=== PATIENT | female | born 1965 | race Caucasian/White ===

== ENCOUNTER 2018-12-20 15:16 | Emergency (ER) | payer OTHER, SELFPAY ==
[2018-12-20 15:17] VITALS: BP 132/78; PULSE 118; RESP 18; TEMP 36.9; O2SAT 97; BMI 35.3
[2018-12-20 15:20] VITALS: PULSE 115; RESP 19; O2SAT 98
--- NOTE | 2018-12-20 15:45 | RAD_ITS ---
STUDY: X-RAY CHEST REASON FOR EXAM: Female, 53 years old. Allergy TECHNIQUE: Frontal view of the chest was performed COMPARISON: None. FINDINGS: Lungs are clear. There is no pneumothorax, pulmonary edema, pleural effusions or cardiomegaly. Osseous structures are intact. There is no gas under the diaphragms. [ ] RAD/Chest 1 View (Portable) IMPRESSION: 1. No acute cardiorespiratory disease. [ ] Electronically Signed: Yaakov Jaimes, at 16:25 EDT Tel , Service support ,
[2018-12-20] MEDS: MethylPREDNISolone 125 MG/2 ML Vial IV (15:55)
[2018-12-20] MEDS: Famotidine 20 MG Tablet PO (15:55)
[2018-12-20] MEDS: DiphenhydrAMINE 50 MG/ML Syringe 25 MG IV (15:55)
--- NOTE | 2018-12-20 16:12 | ED.VISSUMM ---
- ER Visit Summary Date of Service: 12/20/18 Chief Complaint: Allergic reaction History of Present Illness: The patient is a 53 F presenting with allergic reaction. Patient complains of itching all over. She feels that her tongue is swollen. Denies difficulty breathing or swallowing. She took a new medication Adderall this morning. This was her first dose. She also took Augmentin this afternoon. She has taken Augmentin in the past. She had leftover Augmentin and was taking this due to a cough. She denies fever. Denies shortness of breath. Denies other complaints. Physical Examination: Vitals are stable. Heart rate 118. Patient is afebrile. Alert no acute distress. HEENT exam is unremarkable. No tongue swelling. Posterior pharynx normal. Neck is supple. Lungs are clear and equal bilaterally. Heart is regular and tachycardic Abdomen is soft nontender nondistended. Extremities are unremarkable. Skin is warm and dry. No rash No focal neurologic deficit. Remainder of exam is unremarkable. Emergency Department Course and Treatment: Patient was advised to discontinue Adderall and Augmentin. Patient was given Solu-Medrol, Benadryl, Pepcid. Chest x-ray shows no acute process. Patient was observed in the ED. On reevaluation, she is feeling improved. She continues to have no tongue swelling or pharyngeal edema. Repeat heart rate is 90. She will be further observed in the ED and will be checked out to the oncoming physician. Disposition: pending Impression: Allergic reaction This note was generated with [employer] dictation software. It may contain incorrect words, spelling, and punctuation that were not noted in review of the chart prior to signing ED Disposition - Plan for ED Patient: Instructions: ALLERGIC REACTION, Drug Referrals: Marin Castillo DO [Primary Care Provider] -
[2018-12-20 16:20] VITALS: BP 136/90; PULSE 91; RESP 19; O2SAT 97
[2018-12-20 17:00] VITALS: BP 126/82; PULSE 96; RESP 20; O2SAT 97
--- NOTE | 2018-12-20 17:20 | ED.DEP ---
ED Disposition - Plan for ED Patient: Instructions: ALLERGIC REACTION, Drug Referrals: Marin Castillo DO [Primary Care Provider] -
== END 2018-12-20 18:35 | disposition home or self-care (01) ==
LOC: ED 16:08
PROVIDERS: Emergency Provider Emergency Medicine; Family Provider Student in an Organized Health Care Education/Training Program; PCP Student in an Organized Health Care Education/Training Program
DX: T78.40XA Allergy, unspecified, initial encounter (principal); R05 Cough; Z72.0 Tobacco use; F90.9 Attention-deficit hyperactivity disorder, unspecified type
CPT/HCPCS: 71045; 96374; 96375; 99284; A4216

== ENCOUNTER 2020-10-06 21:28 | Emergency (ER) | payer OTHER, SELFPAY ==
[2020-10-06 21:29] VITALS: BP 116/83; PULSE 80; RESP 16; TEMP 36.3; O2SAT 97; BMI 35.4
[2020-10-06 21:50] LABS: Bacteria 0 SEEN /hpf (None Seen); Red Blood Cells-Urine 0 SEEN /hpf (0-5); White Blood Cells 0 SEEN /hpf (0-5)
[2020-10-06 21:58] LABS: Color, Urine Yellow (Yellow); Glucose, Dipstick Normal (Normal); Ketone-Dipstick Negative (Negative); Leukocyte Esterase-Dipstick Negative /ul (Negative); Nitrite-Dipstick Negative (Negative); Occult Blood-Urine 25 /ul (Negative); Protein-Dipstick 30 mg/dl (Negative); Urine Bilirubin Dipstick Negative (Negative); Urine Clarity Clear (Clear); Urine Urobilinogen Normal (Normal)
[2020-10-06 22:07] LABS: Mucous, Urine RARE /hpf (<or=2+); Squamous Epithelial Cells - UA 0-5 SEEN /hpf (5-10)
[2020-10-06 22:08] LABS: Absolute Lymphocyte Count 2.66 X10^3/uL (0.83-4.51); Absolute Neutrophil Count 4.5 X10^3/uL (2.0-7.7); Basophil# 0.04 X10^3/uL; Basophil% 0.5 % (0-1); Eosinophil# 0.02 X10^3/uL; Eosinophils% 0.3 % (0-5); Hematocrit 42.8 % (37-47); Hemoglobin 13.8 g/dL (12.0-15.0); Lymphocyte # 2.66 X10^3/ul (0.83-4.51); Lymphocyte % 33.5 % (19-41); Mean Corp Hgb Conc 32.2 g/dL (32-36); Mean Corpuscular Volume 99.3 fL (81-99); Mean Platelet Vol. 10.7 fl (6.2-12.0); Monocyte# 0.67 X10^3/uL; Monocyte% 8.4 % (0-10); NRBC Flagged by Analyzer 0 % (0-5); Neutrophil # 4.51 X10^3/uL (2.7-7.7); Neutrophil % 56.9 % (47-70); Platelet Count 315 K/mm3 (150-450); RBC Distribution Width CV 12.4 % (11.6-14.6); RBC Distribution Width SD 45.9 fl (35.1-43.9); Red Blood Count 4.31 M/mm3 (4.2-5.4); White Blood Count 7.9 K/mm3 (4.4-11.0)
--- NOTE | 2020-10-06 22:16 | CT_ITS ---
STUDY: CT ABDOMEN AND PELVIS WITHOUT CONTRAST REASON FOR EXAM: Female, 54 years old. Right lower quadrant pain tonight. Nausea. History of prior tubal ligation. RADIATION DOSAGE (If Supplied By Facility): CTDIvol = ( 16.08 ) mGy, DLP = ( 925.57 ) mGycm TECHNIQUE: Transaxial images were obtained from the dome of the diaphragm to the symphysis pubis without oral contrast, and without intravenous contrast. Sagittal and coronal images were reconstructed. Individualized dose optimization techniques were used for this CT. COMPARISON: None. FINDINGS: The visualized lung bases are unremarkable. The visualized portions of the heart are within normal limits. Normal liver. Normal gallbladder and extrahepatic biliary system. Normal spleen. Normal pancreas. There is a small, circumscribed, smooth, low attenuation left adrenal mass, consistent with an adrenal adenoma. Normal right adrenal gland. Normal right kidney. Normal left kidney. Normal visualized ureters. Normal visualized stomach. Normal small intestine. Colonic diverticuli without acute inflammatory change. The appendix is visualized and appears normal. Minimal atherosclerotic changes of the abdominal aorta without aneurysm. Normal inferior vena cava. Normal retroperitoneum. Normal urinary bladder. Normal uterus. No adnexal mass or pelvic lymphadenopathy. No free air or free fluid is seen within the peritoneal cavity. Normal abdominal wall. Minimal degenerative appearing lumbar spine. CT/Abdomen/Pelvis without Cont IMPRESSION: 1. No evidence of renal, ureteral or urinary bladder abnormality. 2. Normal appendix. 3. No acute intra-abdominal or pelvic process. 4. Scattered colonic diverticuli without acute inflammatory change. Electronically Signed: Franklyn Ornelas DO at 22:51 EDT Tel [phone], Service support ,
--- NOTE | 2020-10-06 22:17 | ED.VIS.FEGU ---
HPI HPI - Female History of Present Illness Chief Complaint: Abd Pain Narrative Narrative: 54-year-old female presenting with right flank and right lower abdominal pain which radiates into the inguinal area and she states to her rectum. She has had this for about 3 hours now. She states it was acute in onset. She has nausea without vomiting. She denies constipation or diarrhea. She denies vaginal complaints. She denies hematuria or dysuria. Patient has no history of kidney stones. Patient denies any history of abdominal surgeries except for tubal ligation. PFSH PFSH Home Medications conjugated estrogens 1.25 mg DAILY 12/20/18 [History Last Taken Unknown] dextroamphetamine-amphetamine 10 mg DAILY 12/20/18 [History Last Taken Unknown] loratadine 10 mg PO DAILY 12/20/18 [History Last Taken Unknown] medroxyprogesterone 5 mg DAILY 12/20/18 [History Last Taken Unknown] omeprazole 20 mg DAILY 12/20/18 [History Last Taken Unknown] acyclovir 800 mg PO BID 10/06/20 [History Last Taken Unknown] Allergy/AdvReac Type Severity Reaction Status Date / Time povidone-iodine Allergy Rash Verified 10/06/20 21:31 [From Betadine] soap [From Betadine] Allergy Rash Verified 10/06/20 21:31 Social History Smoking Status: Current every day smoker tobacco type: cigarettes ROS ROS ED Constitutional Constitutional ED: Denies chills or fever(s) Eyes Eyes: Denies blurry vision or diplopia ENT ENT ED: Denies rhinorrhea or sore throat Cardiovascular Cardiovascular: Denies chest pain, palpitations or racing heartbeat Respiratory/Chest Respiratory/Chest: Denies cough or dyspnea Gastrointestinal Gastrointestinal: Reports abdominal pain and nausea; Denies constipation, diarrhea or melena Genitourinary Genitourinary ED: Reports dysuria and hematuria Musculoskeletal Musculoskeletal: Denies arthralgias or myalgias Integumentary Denies abscess or rash Neurologic Neurologic: Denies headache(s) or paresthesias Psychiatric Psychiatric: Denies anxiety or depression EXAM Physical Exam Const Vital Signs: 10/06/20 21:29 Temperature 97.4 F L Temperature Source Temporal Pulse Rate 80 Respiratory Rate 16 Blood Pressure 116/83 H Blood Pressure Mean 94 Pulse Ox 97 Oxygen Delivery Method Room Air Positive well nourished General Appearance ED: NAD HEENT Reports moist mucous membranes Negative for trauma Eyes PERRL and EOMs intact bilaterally General Eye ED: Negative for pale conjunctiva or scleral icterus Resp normal respiratory effort and clear to auscultation bilaterally Cardio regular rate and regular rhythm GI normal to inspection, nondistended, normoactive bowel sounds Bladder / Kidney Exam: CVA tenderness left Back/Spine Lumbar Spine / Lower Back: Negative for lumbar spinal tenderness Extremity normal to inspection Neuro oriented x3 Sensorium / Orientation: alert Psych mental status grossly normal Skin no rashes or lesions noted and no wounds MDM MDM MDM Narrative Medical decision making narrative: Patient's lab work is normal. Renal function electrolytes are normal. No leukocytosis. Urinalysis positive for occult blood. CT abdomen pelvis without contrast does not identify any kidney stones or hydronephrosis. Appendix is visualized and is normal. Patient counseled on all findings. I feel she probably should follow-up with urology given her history of hematuria and hematuria today without kidney stone. Patient also counseled she is to follow-up with her PCP on an outpatient basis. I feel she is stable to be discharged home at this time. Impression: 1. Abdominal pain 2. Hematuria Lab Data Labs: Laboratory Results - last 24 hr 10/06/20 10/06/20 10/06/20 21:45 21:58 21:58 WBC 7.9 RBC 4.31 Hgb 13.8 Hct 42.8 MCV 99.3 H MCH 32.0 MCHC 32.2 RDW Std Deviation 45.9 H RDW Coeff of [place] 12.4 Plt Count 315 MPV 10.7 Immature Gran % (Auto) 0.400 Neut % (Auto) 56.9 Lymph % (Auto) 33.5 [place] % (Auto) 8.4 Eos % (Auto) 0.3 Baso % (Auto) 0.5 Absolute Neuts (auto) 4.5 Absolute Lymphs (auto) 2.66 Nucleated RBC % 0 Sodium Cancelled Potassium Cancelled Chloride Cancelled Carbon Dioxide Cancelled Anion Gap Cancelled BUN Cancelled Creatinine Cancelled Estim Creat Clear Calc Cancelled Est GFR (MDRD) Af Amer Cancelled Est GFR (MDRD) Non-Af Cancelled BUN/Creatinine Ratio Cancelled Glucose Cancelled Calcium Cancelled Urine Color Yellow Urine Clarity Clear Urine pH 5.0 Ur Specific [place] 1.030 Urine Protein 30 H Urine Glucose (UA) Normal Urine Ketones Negative Urine Occult Blood 25 H Urine Nitrite Negative Urine Bilirubin Negative Urine Urobilinogen Normal Ur Leukocyte Esterase Negative Urine RBC 0 SEEN Urine WBC 0 SEEN Ur Squamous Epith Cells 0-5 SEEN Urine Bacteria 0 SEEN Urine Mucus RARE 10/06/20 22:41 WBC RBC Hgb Hct MCV MCH MCHC RDW Std Deviation RDW Coeff of [place] Plt Count MPV Immature Gran % (Auto) Neut % (Auto) Lymph % (Auto) [place] % (Auto) Eos % (Auto) Baso % (Auto) Absolute Neuts (auto) Absolute Lymphs (auto) Nucleated RBC % Sodium 134 L Potassium 3.5 Chloride 103 Carbon Dioxide 22.0 Anion Gap 9 BUN 11 Creatinine 0.63 Estim Creat Clear Calc 86.41 Est GFR (MDRD) Af Amer 128 Est GFR (MDRD) Non-Af 106 BUN/Creatinine Ratio 17.5 Glucose 107 H Calcium 8.7 Urine Color Urine Clarity Urine pH Ur Specific [place] Urine Protein Urine Glucose (UA) Urine Ketones Urine Occult Blood Urine Nitrite Urine Bilirubin Urine Urobilinogen Ur Leukocyte Esterase Urine RBC Urine WBC Ur Squamous Epith Cells Urine Bacteria Urine Mucus Radiography Diagnostic Testing: Radiology Impression Abdomen/Pelvis CT 10/06/20 22:16 IMPRESSION: 1. No evidence of renal, ureteral or urinary bladder abnormality. 2. Normal appendix. 3. No acute intra-abdominal or pelvic process. 4. Scattered colonic diverticuli without acute inflammatory change. Electronically Signed: Franklyn Ornelas DO at 22:51 EDT Tel [phone], Service support , Discharge Plan Triage Chief Complaint: Abd Pain ED Provider: Danny Shoemaker Dx/Rx/DC Orders Instructions: ED Abdominal Pain Unkn Cause Fem, ED Hematuria Prescriptions: No Action medroxyprogesterone 5 tablet 5 mg DAILY RF: 0 omeprazole 20 capsule,delayed release(DR/EC) 20 mg DAILY RF: 0 dextroamphetamine-amphetamine 10 MG capsule,extended release 24hr 10 mg DAILY RF: 0 conjugated estrogens 1.25 tablet 1.25 mg DAILY RF: 0 loratadine 10 MG capsule 10 mg PO DAILY RF: 0 acyclovir 800 mg tablet 800 mg PO BID RF: 0 Primary Care Provider: Marin Castillo Referrals: Silvia Craven MD [STAFF PHYSICIAN] - As soon as possible Marin Castillo DO [Primary Care Provider] - Disposition Disposition: Home, Self Care
[2020-10-06 22:57] LABS: Anion Gap 9 (5-15); BUN 11 mg/dL (7-18); BUN/Creat Ratio 17.5 RATIO (10-20); Calcium,Total 8.7 mg/dL (8.5-10.1); Chloride 103 mmol/L (98-107); Creatinine, Serum 0.63 mg/dL (0.55-1.02); EST Glomerular Filtration Rate 106 mL/min (>60); Est Glom Filt Rate - Afr Amer 128 mL/min (>60); Estimated Creatinine Clearance 86.41 ml/min; Glucose 107 mg/dL (74-106); Potassium 3.5 mmol/L (3.5-5.1); Sodium Level 134 mmol/L (136-145)
[2020-10-06] MEDS: Morphine 4 MG/ML Syringe IV (23:09)
[2020-10-06] MEDS: Ondansetron 4 MG/2 ML Vial IV (23:09)
[2020-10-06 23:42] VITALS: BP 118/82; PULSE 86; RESP 14; O2SAT 98
== END 2020-10-06 23:44 | disposition home or self-care (01) ==
PROVIDERS: Emergency Provider Student in an Organized Health Care Education/Training Program; PCP Student in an Organized Health Care Education/Training Program
DX: R10.9 Unspecified abdominal pain (principal); R31.9 Hematuria, unspecified; F17.210 Nicotine dependence, cigarettes, uncomplicated; R11.0 Nausea; Z79.3 Long term (current) use of hormonal contraceptives
CPT/HCPCS: 74176; 80048; 81001; 85025; 96374; 96375; 99282; J2405